=== PATIENT | female | born 1995 | race African-American/Black ===

== ENCOUNTER 2018-09-07 08:27 | Day surgery (SDC) | payer MEDICAID ==
[~2018-09-07 08:27] MED LIST: Lactated Ringers 1,000 ML IV SCH; Lidocaine 1%/Sod Bicarbonate in NS 8.4% 1 ML Syringe IDERM PRN; Sodium Chloride 0.9% 10 ML Syringe FLUSH PRN
--- NOTE | 2018-09-07 09:12 | PCM.PREANE ---
Preanesthetic Assessment - Procedure Proposed Procedure: left knee video arthroscopy with ACL recongruction - Anesthesia/Transfusion/Family Hx Anesthesia History: Prior Anesthesia Without Reaction Family History of Anesthesia Reaction: No Transfusion History: No Prior Transfusion(s) - Review of Systems General: No Symptoms Pulmonary: No Symptoms Cardiovascular: No Symptoms Gastrointestinal: No Symptoms Neurological: No Symptoms Other: Reports: Anxiety - Physical Assessment NPO Status Date: 09/06/18 NPO Status Time: 19:00 Pulse: 76 O2 Sat by Pulse Oximetry: 100 Respiratory Rate: 16 Blood Pressure: 127/72 Temperature: 98.5 F Height: 5 ft 6 in Weight: 81.3 kg ASA Class: 2 Mental Status: Alert & Oriented x3 Airway Class: Mallampati = 1 Dentition: Reports: Normal Dentition Thyro-Mental Finger Breadths: 3 Mouth Opening Finger Breadths: 3 ROM/Head Extension: Full Lungs: Clear to Auscultation, Normal Respiratory Effort Cardiovascular: Regular Rate, Regular Rhythm - Lab Values: Laboratory Last Values Urine HCG, Qual Negative (NEGATIVE) 09/07/18 08:42 MRSA (PCR) Negative 08/25/18 09:30 - Allergies Allergies/Adverse Reactions: Allergies Allergy/AdvReac Type Severity Reaction Status Date / Time No Known Allergies Allergy Verified 09/06/18 13:16 - Blood Blood Available: No - Acknowledgements Anesthesia Type Planned: General Anesthesia Pt an Appropriate Candidate for the Planned Anesthesia: Yes Alternatives and Risks of Anesthesia Discussed w Pt/Guardian: Yes Pt/Guardian Understands and Agrees with Anesthesia Plan: Yes PreAnesthesia Questionnaire HEENT History: Reports: None Cardiovascular History: Reports: None Respiratory History: Reports: None Gastrointestinal History: Reports: None Genitourinary History: Reports: Other (See Below) Other Genitourinary History: trichamonas vaginitis FORM MAKER History: Reports: None Musculoskeletal History: Reports: Other (See Below) Other Musculoskeletal History: left knee anterior cruciate rupture Neurological History: Reports: None Psychiatric History: Reports: Anxiety Endocrine/Metabolic History: Reports: None Hematologic History: Reports: None Immunologic History: Reports: None Oncologic (Cancer) History: Reports: None Dermatologic History: Reports: None - Past Surgical History Head Surgeries/Procedures: Reports: None HEENT Surgical History: Reports: None Cardiovascular Surgical History: Reports: None Respiratory Surgical History: Reports: None GI Surgical History: Reports: None Female Surgical History: Reports: None Male Surgical History: Reports: None Endocrine Surgical History: Reports: None Neurological Surgical History: Reports: None Musculoskeletal Surgical History: Reports: None Oncologic Surgical History: Reports: None Dermatological Surgical History: Reports: None - SUBSTANCE USE Smoking Status *Q: Never Smoker Tobacco Use Within Last Twelve Months: No Second Hand Smoke Exposure: No Recreational Drug Use History: Yes Recreational Drug Type: Reports: Marijuana/Hashish - HOME MEDS Home Medications: Home Meds FLUoxetine HCl [Prozac] 20 mg PO DAILY 09/06/18 [History] Acetaminophen/HYDROcodone [[place] 325-5 MG] 1 - 2 tab PO Q6H PRN #40 tablet 09/07 [Rx] Aspirin 325 mg PO BID #84 tab 09/07/18 [Rx] Cyclobenzaprine [Flexeril] 10 mg PO Q8H PRN #40 tab 09/07/18 [Rx] - CURRENT (IN HOUSE) MEDS Current Meds: Current Medications Lactated Ringer's (Ringers, Lactated) 1,000 mls @ 125 mls/hr IV ASDIRECTED ЮЛИЯ Stop: 09/07/18 23:00 Lidocaine/Sodium Bicarbonate (Buffered Lidocaine 1% In Ns 8.4%) 0.25 ml IDERM ONETIME PRN PRN Reason: Prior to IV Start Stop: 09/07/18 18:00 Sodium Chloride (Saline Flush) 10 ml FLUSH ASDIRECTED PRN PRN Reason: Keep Vein Open Stop: 09/07/18 18:00 Discontinued Medications Epinephrine HCl (Adrenalin) 3 mg .XX ONETIME ONE Stop: 09/07/18 08:01
[2018-09-07] MEDS ORDERED: fentaNYL 250 MCG/5 ML SDV ONE (09:15)
[2018-09-07] MEDS ORDERED: Propofol 200 MG/20 ML SDV ONE ×7 (09:15→11:50)
[2018-09-07] MEDS ORDERED: Midazolam 1 MG/ML 2 ML SDV ONE (09:15)
[2018-09-07] MEDS ORDERED: ceFAZolin 1 GM Vial ONE (09:21)
[2018-09-07] MEDS ORDERED: Dexamethasone 4 MG/ML 5 ML MDV ONE (09:21)
[2018-09-07] MEDS ORDERED: Ondansetron 4 MG/2 ML SDV ONE (09:21)
[2018-09-07] MEDS ORDERED: Bupivacaine 0.25% 10 ML SDV ONE (09:23)
[2018-09-07] MEDS ORDERED: Lidocaine 1% 4 ML ONE ×2 (09:27→12:53)
[2018-09-07] MEDS ORDERED: HYDROmorphone 0.5 MG/0.5 ML Syringe ONE ×3 (10:27→11:52)
[2018-09-07] MEDS: EPINEPHrine 1 MG/ML 30 ML MDV ONE ×2 (10:46→11:06)
[2018-09-07] MEDS: Bupivacaine 0.25% 30 ML SDV ONE ×2 (11:06→12:15)
[2018-09-07] MEDS ORDERED: Labetalol 100 MG/20 ML MDV ONE (11:26)
[2018-09-07] MEDS ORDERED: Lactated Ringers 1,000 ML ONE (11:28)
--- NOTE | 2018-09-07 12:21 | CR ---
Left knee: Single AP view of the left knee was obtained utilizing C-arm device. Comparison: Previous MRI left knee study of 07/21/18. Surgery is noted within the left knee appearing to be ACL repair surgery. Fluoroscopy time is given as 4.9 seconds. Impression: 1. Procedural study as noted above. Diagnostic code #2
[2018-09-07] MEDS ORDERED: EPINEPHrine 1 MG/ML SDV ONE (12:27)
[2018-09-07] MEDS ORDERED: Ropivacaine 0.5% 5 MG/ML 30 ML SDV ONE (12:28)
--- NOTE | 2018-09-07 12:36 | PCM.POSTAN ---
POST ANESTHESIA ASSESSMENT - MENTAL STATUS Mental Status: Alert, Oriented - VITAL SIGNS Pulse Rate: 91 SaO2: 100 Resp Rate: 20 Blood Pressure: 130/72 Temperature: 36.5 C - RESPIRATORY Respiratory Status: Respiratory Rate WNL, Airway Patent, O2 Saturation Stable, Supplemental Oxygen - CARDIOVASCULAR CV Status: Pulse Rate WNL, Blood Pressure Stable - GASTROINTESTINAL GI Status: No Symptoms - PAIN Pain Score: 0 - POST OP HYDRATION Hydration Status: Adequate & Stable
[2018-09-07] MEDS ORDERED: Ondansetron 4 MG/2 ML SDV IVPUSH PRN (12:37)
[2018-09-07] MEDS ORDERED: diphenhydrAMINE 50 MG/ML SDV IVPUSH PRN (12:37)
[2018-09-07] MEDS ORDERED: Ketorolac 30 MG/ML SDV IVPUSH ONE (12:37)
[2018-09-07] MEDS ORDERED: fentaNYL 100 MCG/2 ML SDV ONE (12:37)
[2018-09-07] MEDS ORDERED: fentaNYL 100 MCG/2 ML SDV IVPUSH PRN (12:37)
[2018-09-07] MEDS ORDERED: Meperidine 50 MG/ML Vial IVPUSH ONE (12:37)
[2018-09-07] MEDS ORDERED: HYDROmorphone 0.5 MG/0.5 ML Syringe IVPUSH PRN (12:37)
--- NOTE | 2018-09-07 13:23 | PCM.SN ---
- Free Text/Narrative Note: Left ultrasound guided selective femoral nerve block at the adductor canal for post-procedure pain control Time Out: 1300 Start: 1300 End: 1306 Chart reviewed. Consent signed. Questions answered. Appropriate monitors applied. Time out performed. Left mid-shaft femur evaluated with ultrasound. Scanning medially femur, I was able to identify the femoral artery in the adductor canal. The saphenous nerve was lateral to the artery. The skin was prepped lateral to the ultrasound probe with chlorahexadine. The 21ga 4 insulated block needle was inserted under direct ultrasound guidance into the adductor canal. 20mL of 0.5% ropivacaine with 1:200,000 epinephrine was injected cirmcumferentially about the nerve with intermittent negative aspiration every 5mL. Patient tolerated the procedure well. See pictures on progress note and vital signs on nurses notes. Block completed postoperatively. Elkin Alejandra CRNA
--- NOTE | 2018-09-07 14:45 | PCM48HPAN ---
Post Anesthesia Note - EVALUATION WITHIN 48HRS OF ANESTHETIC Vital Signs in Normal Range: Yes Patient Participated in Evaluation: Yes Respiratory Function Stable: Yes Airway Patent: Yes Cardiovascular Function Stable: Yes Hydration Status Stable: Yes Pain Control Satisfactory: Yes Nausea and Vomiting Control Satisfactory: Yes Mental Status Recovered: Yes (no complaints.) Pulse Rate: 91 Resp Rate: 16 Temperature: 97.7 F Blood Pressure: 130/72
--- NOTE | 2018-09-15 16:37 | PCM.OPNOTE ---
- General Post-Op/Procedure Note Date of Surgery/Procedure: 09/07/18 Operative Procedure(s): left knee video arthroscopy with ACL quadriceps tendon reconstruction Pre Op Diagnosis: left knee ACL rupture Post-Op Diagnosis: Same Anesthesia Technique: General LMA, Regional Block Primary Surgeon: Akbar Tovar Anesthesia Provider: Elkin Alejandra Flame Channeler: Asya Mills Flame Channeler: Cely Ortiz EBL in mLs: 15 Complications: None Condition: Good
--- NOTE | 2018-09-18 07:19 | OR ---
DATE OF OPERATION: 09/07/2018 SURGEON: Akbar Tovar MD PROCEDURE: Left knee video arthroscopy with anterior cruciate ligament quadriceps tendon reconstruction. PREOPERATIVE DIAGNOSIS: Left knee anterior cruciate ligament rupture. POSTOPERATIVE DIAGNOSIS: Left knee anterior cruciate ligament rupture. ANESTHESIA TECHNIQUE: General LMA with regional femoral block ANESTHESIA PROVIDER: Elkin Aljeandra. MANAGER SUPPLY CHAIN: Asya Mills PA-C, and Cely Ortiz LPN. ESTIMATED BLOOD LOSS: 15 mL. COMPLICATIONS: None. CONDITION: Stable. DESCRIPTION OF PROCEDURE: The patient was identified in the preoperative holding area. Proper site was marked, identified by the surgeon. The patient was taken back to the operating theater, where after adequate anesthesia, the patient's left lower extremity had a nonsterile tourniquet applied and was placed in a C-clamp syed. Right lower extremity was placed in a well leg syed. Foot of the bed was then lowered. Left lower extremity was then sterilely prepped and draped in the usual sterile fashion. OR time-out was performed. The patient received 2 g of IV Ancef. Left lower extremity was exsanguinated. Tourniquet was insufflated to 250 mmHg. Standard anterior lateral portal incision was made. Scope trocar was introduced. The patient was noted to have severe synovitis. The patient had no medial or lateral meniscus tear noted. An anterior medial portal was created as well. At this time, there was noted to be a significant tear of the ACL off the femoral attachment. All the other structures appeared intact. At this time, scope was removed. Incision was made at the proximal pole of the patella. This was taken down to the quadriceps tendon and a 75 mm x 9 mm graft of the quadriceps tendon was taken in the usual standard fashion. Whipstitch was placed in the distal portion and a cigar cutter was used to cut the graft. At this time, this was taken to the back table, was prepared by EDWIGE Magana and Cely Ortiz LPN, for both the femoral and tibial attachment sites. While this was being completed, the skin incision for this graft was closed and the notch was prepared. The old ACL was resected. At this time, the femoral guide was then placed at 105 degrees and was placed at the posterior footprint with 3 mm rim at the posterior portion of the lateral femoral condyle. Guide pin was then placed and a 9 mm tunnel was reamed back to about 20 mm. At this time, the tibial guide was placed through the anterior medial portal. Guide pin was placed through the center portion of the old footprint of the ACL. A 9 mm tunnel was then again drilled on the side as well. Once this was completed, the graft was ready, the graft was shuttled up through the tibia into the notch. The Endobutton was flipped. C-arm fluoroscopy showed it to be adequately flipped on the bone and was shuttled up into the femoral tunnel. At this time, attention was applied. The patient's knee was brought through a cycle. Drill hole was then drilled in the tibia for a 4.5 mm Bartlett screw with a washer for a post. This was then applied. The suture was tied over it and then this was tightened in the usual fashion. The patient had negative Laura's anterior drawer, and adequate saline was irrigated through all wounds. Vicryl was used subcutaneously, and Monocryl was used for the skin. The patient had a sterile soft dressing as well as a hinged knee brace applied and was sent to the PACU in stable condition. OPERATION PERFORMED: ANESTHESIA: ARNOLDO /[id number]
== END 2018-09-07 15:14 | disposition home or self-care (01) ==
LOC: JD.SDS 08:27
PROVIDERS: ATTEND Orthopaedic Surgery
DX: S83.512A Sprain of anterior cruciate ligament of left knee, initial encounter (principal); G89.18 Other acute postprocedural pain; F41.9 Anxiety disorder, unspecified; Z79.82 Long term (current) use of aspirin; Z79.899 Other long term (current) drug therapy
CPT/HCPCS: 29888; 64447; 76000; 81025; 87641; C1713; J0171; J0690; J1100; J1170; J2001; J2250; J2405; J2704; J2795; J3010; J3490; J7120; 01464